=== PATIENT | female | born 1980 | race Caucasian/White ===

== ENCOUNTER 2019-04-16 10:12 | Emergency (ER) | payer OTHER, BC ==
[~2019-04-16] VITALS: Ht 170.2 cm; Wt 65.8 kg
[2019-04-16] MEDS ORDERED: WELLBUTRIN XL300 MG PO (10:32)
[2019-04-16 12:01] VITALS: BP 121/74
== END 2019-04-16 12:02 | disposition home or self-care (01) ==
LOC: ER 10:12
DX: S81.811A Laceration without foreign body, right lower leg, initial encounter (principal); Z88.1 Allergy status to other antibiotic agents; Z88.6 Allergy status to analgesic agent; W26.8XXA Contact with other sharp object(s), not elsewhere classified, initial encounter; Y93.89 Activity, other specified; Y92.89 Other specified places as the place of occurrence of the external cause; Y99.8 Other external cause status